=== PATIENT | male | born 1990 | race African-American/Black ===

== ENCOUNTER 2016-08-06 05:13 | Emergency (ER) | payer OTHER ==
[~2016-08-06 05:13] MED LIST: HYDROCODON-ACE1 EAC9 PO; NO MEDICATIONS
== END 2016-08-06 06:00 | disposition home or self-care (01) ==
LOC: CED 05:13
DX: L02.811 Cutaneous abscess of head [any part, except face] (principal); F17.200 Nicotine dependence, unspecified, uncomplicated
CPT/HCPCS: 10060; 87070; 87205; 99283